=== PATIENT | female | born 1960 | race African-American/Black ===

== ENCOUNTER 2018-04-04 01:36 | Emergency (ER) | payer SELFPAY ==
[~2018-04-04] VITALS: Ht 172.7 cm; Wt 94.0 kg
[2018-04-04] MEDS ORDERED: ASPIRIN 81MG TABLET PO ONE (03:00)
[2018-04-04 03:27] LABS: BASOPHILS % 0.5 % (0.0-2.0); EOSINOPHILS % 2.1 % (0.0-5.0); HEMOGLOBIN. 12.4 g/dL (12.0-16.0); LYMPHOCYTES % 51.5 % (20.0-50.0); MEAN CORPUSCULAR HEMOGLOBIN 29.8 pg (28.0-32.0); MEAN CORPUSCULAR VOLUME 89.2 fL (81.0-99.0); MEAN PLATELET VOLUME 7.8 fl (7.4-10.4); MONOCYTES % 7.1 % (2.0-8.0); NEUTROPHILS % 38.8 % (40.0-76.0); PLATELET 169 x1000/uL (130-400); RED BLOOD CELL COUNT 4.15 mill/uL (4.2-5.4); RED CELL DISTRIBUTION WIDTH 14.4 % (11.6-14.6)
[2018-04-04 03:37] LABS: CHLORIDE 109 mEq/L (98-107)
[2018-04-04 06:04] VITALS: BP 131/77
== END 2018-04-04 06:04 | disposition home or self-care (01) ==
LOC: ER 01:36
DX: R07.89 Other chest pain (principal); R03.0 Elevated blood-pressure reading, without diagnosis of hypertension
CPT/HCPCS: 36415; 71045; 80053; 83880; 84484; 85025; 93005; 99285; Z7610

== ENCOUNTER 2018-06-21 08:42 | Emergency (ER) | payer SELFPAY ==
[~2018-06-21] VITALS: Ht 172.7 cm; Wt 73.0 kg
[2018-06-21] MEDS ORDERED: IPRATROPIUM BROMIDE (0.02%) 0.5MG/2.5ML NEB HHN STA (09:02)
[2018-06-21] MEDS ORDERED: ALBUTEROL (0.083%) 2.5MG/3ML NEB HHN STA (09:02)
[2018-06-21] MEDS ORDERED: IBUPROFEN 400MG TABLET PO ONE (10:00)
[2018-06-21 10:10] VITALS: BP 125/65
== END 2018-06-21 10:28 | disposition home or self-care (01) ==
LOC: ER 08:42
DX: J06.9 Acute upper respiratory infection, unspecified (principal); B34.9 Viral infection, unspecified; J45.909 Unspecified asthma, uncomplicated; Z98.890 Other specified postprocedural states; Z88.5 Allergy status to narcotic agent; Z90.710 Acquired absence of both cervix and uterus
CPT/HCPCS: 71045; 87804; 99284; J7611

== ENCOUNTER 2018-06-27 14:24 | Emergency (ER) | payer SELFPAY ==
[~2018-06-27] VITALS: Ht 172.7 cm; Wt 73.0 kg
[2018-06-27] MEDS ORDERED: KETOROLAC 30MG/ML VIAL IM ONE (17:15)
[2018-06-27 18:40] VITALS: BP 161/91
== END 2018-06-27 18:57 | disposition home or self-care (01) ==
LOC: ER 17:29
DX: M25.512 Pain in left shoulder (principal); R03.0 Elevated blood-pressure reading, without diagnosis of hypertension; Z88.5 Allergy status to narcotic agent
CPT/HCPCS: 73030; 96372; 99283; J1885; A4565